=== PATIENT | male | born 1990 | race Caucasian/White ===

== ENCOUNTER 2024-12-10 10:52 | Outpatient (CLI) | payer MEDICAID ==
[~2024-12-10 10:52] MED LIST: ONDA4TAB6 PO
--- NOTE | 2024-12-10 12:25 | RADIOLOGY REPORT ---
EXAM: DI SHOULDER, COMPLETE (MIN 2 VWS) CLINICAL INDICATION: LEFT SHOULDER PAIN TECHNIQUE: DI SHOULDER, COMPLETE (MIN 2 VWS) Comparison: None FINDINGS/IMPRESSION: There is no evidence of acute fracture or dislocation. The visualized joint space is well maintained. The alignment is anatomical. There is no radiopaque foreign body.
== END 2024-12-10 23:59 | disposition home or self-care (01) ==
LOC: RAD 10:52
PROVIDERS: ATTEND Nurse Practitioner Family
DX: M25.512 Pain in left shoulder (principal)
CPT/HCPCS: 73030

== ENCOUNTER 2025-01-09 09:07 | Outpatient (CLI) | payer MEDICAID ==
--- NOTE | 2025-01-09 12:13 | RADIOLOGY REPORT ---
CLINICAL INDICATION: PAIN IN LEFT SHOULDER COMPARISON: None TECHNIQUE: Multiplanar, multisequence MRI of the left shoulder was performed without contrast. Contrast: None FINDINGS: Glenohumeral joint: There is no fracture or bone marrow edema. Alignment is maintained. No focal a rticular cartilage defect. There is no joint effusion or synovitis. Acromioclavicular joint: The acromioclavicular joint is capsular hypertrophy. The acromion is not downsloping. Rotator cuff and bursae: The supraspinatus, infraspinatus, subscapularis and teres minor tendons are intact. There is no regional muscle atrophy. Trace fluid in the subacromial subdeltoid bursa. Biceps tendon and glenoid labrum: The long head biceps tendon is located within the bicipital groove and intact. There is a chronic tear of the anterior inferior labrum. Tear of the anterior super ior and posterior superior labrum. IMPRESSION: 1. Chronic appearing tear of the anterior superior, posterior superior and anterior inferior glenoid labrum. 2. Mild AC joint capsular thickening. Mild subacromial subdeltoid bursitis. 3. No rotator cuff significant tendinopathy or tear.
== END 2025-01-09 23:59 | disposition home or self-care (01) ==
LOC: MRI02 09:07
PROVIDERS: ATTEND Nurse Practitioner Family
DX: S43.432A Superior glenoid labrum lesion of left shoulder, initial encounter (principal); M25.512 Pain in left shoulder; X58.XXXA Exposure to other specified factors, initial encounter; Y93.89 Activity, other specified; Y92.89 Other specified places as the place of occurrence of the external cause; Y99.8 Other external cause status
CPT/HCPCS: 73221